=== PATIENT | female | born 1990 | race African-American/Black ===

== ENCOUNTER 2018-10-03 10:58 | Emergency (ER) | payer MEDICAID ==
[~2018-10-03] VITALS: Ht 177.8 cm; Wt 174.2 kg
[2018-10-03 11:04] VITALS: BP 161/93
--- NOTE | 2018-10-03 11:12 | NUR ---
Patient ambulated to bed 11. RN evaluating patient at bedside.
--- NOTE | 2018-10-03 11:31 | NUR ---
Dr. Mejia evaluating patient at bedside.
--- NOTE | 2018-10-03 11:44 | NUR ---
PT BIB SELF C/O VAGINAL BLEEDING SINCE June ALONG WITH UPPER AND LOWER BACK PAIN X 2 WEEKS. PT DENIES BURNING URINATION OR VAGINAL PAIN, REPORTS HAVING TO CHANGE PAD 10X PER HOUR. BACK PAIN X 2 WEEKS, DENIES RECENT INJURIES, PAIN AT 11/05. VSS. ER MD TO SEE PT. HX: HTN
[2018-10-03] MEDS ORDERED: NACL 0.9% 1,000 ML IV ONE (11:50)
[2018-10-03 12:11] LABS: BASOPHILS # (AUTO) 0.1 K/uL (0.00-0.22); BASOPHILS % (AUTO) 1.2 % (0.0-2.0); EOSINOPHILS # (AUTO) 0.1 K/uL (0-0.4); EOSINOPHILS % (AUTO) 1.7 % (0.0-4.0); HEMATOCRIT 34.4 % (36-48); HEMOGLOBIN 11.5 g/dL (12.0-16.0); LYMPHOCYTES # (AUTO) 2.3 K/uL (2.5-16.5); LYMPHOCYTES % (AUTO) 28.9 % (20.5-51.1); MEAN CORPUSCULAR HEMOGLOBIN 28 pg (27-31); MEAN CORPUSCULAR HGB CONC 34 g/dL (33-37); MEAN CORPUSCULAR VOLUME 82.4 fL (80-94); MONOCYTES # (AUTO) 0.6 K/uL (0.8-1.0); MONOCYTES % (AUTO) 7.4 % (1.7-9.3); NEUTROPHILS # (AUTO) 4.9 K/uL (1.8-7.7); NEUTROPHILS % (AUTO) 60.8 % (42.2-75.2); PLATELET COUNT (AUTO) 331 K/uL (140-450); RED BLOOD CELL COUNT(AUTO) 4.18 MIL/uL (4.20-5.40); RED CELL DISTRIBUTION WIDTH 15.7 % (11.6-13.7); WHITE BLOOD COUNT (AUTO) 8.1 K/uL (4.8-10.8)
--- NOTE | 2018-10-03 12:12 | NUR ---
US tech at bedside for exam.
[2018-10-03 12:23] LABS: ANION GAP 11.1 (8-16); CARBON DIOXIDE 28.7 mmol/L (21-32); CREATININE 0.8 mg/dL (0.6-1.3); POTASSIUM 3.8 mmol/L (3.5-5.1)
[2018-10-03 12:28] LABS: PROTHROMBIN TIME 9.5 secs (10.8-13.4)
[2018-10-03 12:29] LABS: ALBUMIN 3.5 g/dL (3.4-5.0); TOTAL BILIRUBIN 0.3 mg/dL (0.0-1.0)
[2018-10-03 12:56] VITALS: BP 134/75
--- NOTE | 2018-10-03 12:58 | NUR ---
Patient discharged with v/s stable. Written and verbal after care instructions given and explained. Patient alert, oriented and verbalized understanding of instructions. Ambulatory with steady gait. All questions addressed prior to discharge. ID band removed. Patient advised to follow up with PMD. Rx of TRAMADOL,PREMARIN given. Patient educated on indication of medication including possible reaction and side effects. Opportunity to ask questions provided and answered.
== END 2018-10-03 12:55 | disposition home or self-care (01) ==
LOC: MED 10:58
DX: N83.201 Unspecified ovarian cyst, right side (principal); N94.6 Dysmenorrhea, unspecified; R07.89 Other chest pain
CPT/HCPCS: 36415; 76856; 80053; 81002; 81025; 85025; 85610; 85730; 99284; J7030; Q0092

== ENCOUNTER 2018-11-20 10:58 | Emergency (ER) | payer MEDICAID ==
[~2018-11-20] VITALS: Ht 175.3 cm; Wt 173.3 kg
[2018-11-20 11:00] VITALS: BP 138/93
--- NOTE | 2018-11-20 11:16 | NUR ---
C/O SUSPECTED SPIDER BITE & PAIN 12/05 AND THROBBING TO L FOREHEAD X5 DAYS. PER PT, SHE WAS SEEN AT [facility] ON SUNDAY AND GIVEN ABX FOR THE BITE. PT STATES AT THAT TIME IT WAS DRAINING BROWN/YELLOW FLUID. REDNESS NOTED TO L SIDE FOREHEAD, NO DRAINAGE NOTED AT THIS TIME, MILD SWELLING NOTED TO L TEMPORAL AREA RADIATING TO EYE/EAR. PT DENIES FEVER/CHILLLS/N/V. BED IN LOW POSITION, SIDE RAIL UP X1
--- NOTE | 2018-11-20 11:18 | NUR ---
ERMD AT BEDSIDE
[2018-11-20] MEDS ORDERED: HYDROcodone/APAP 5/325 MG 1 TAB TAB PO ONE (11:30)
--- NOTE | 2018-11-20 12:00 | NUR ---
PT STATES THE PAIN MEDICATION RELIEVED HER PAIN TO 5/10 AT THIS TIME
[2018-11-20 12:25] VITALS: BP 130/91
--- NOTE | 2018-11-20 12:26 | NUR ---
Patient discharged with v/s stable. Written and verbal after care instructions given and explained. Patient alert, oriented and verbalized understanding of instructions. Ambulatory with steady gait. All questions addressed prior to discharge. ID band removed. Patient advised to follow up with PMD. Rx of NORCO, GABAPENTIN given. Patient educated on indication of medication including possible reaction and side effects. Opportunity to ask questions provided and answered.
== END 2018-11-20 12:26 | disposition home or self-care (01) ==
LOC: MED 10:58
DX: S00.86XA Insect bite (nonvenomous) of other part of head, initial encounter (principal); M79.2 Neuralgia and neuritis, unspecified; W57.XXXA Bitten or stung by nonvenomous insect and other nonvenomous arthropods, initial encounter; Y93.89 Activity, other specified; Y92.89 Other specified places as the place of occurrence of the external cause; Y99.8 Other external cause status
CPT/HCPCS: 99283

== ENCOUNTER 2019-05-08 08:15 | Emergency (ER) | payer MEDICAID ==
[~2019-05-08] VITALS: Ht 177.8 cm; Wt 174.6 kg
[2019-05-08 08:21] VITALS: BP 159/101
--- NOTE | 2019-05-08 08:25 | NUR ---
Patient ambulated to bed 9. RN evaluating patient at bedside.
--- NOTE | 2019-05-08 08:33 | NUR ---
RECEVIED A 29/F FROM TRIAGE WITH C/O LOWER ABDOMINAL PAIN/CRAMPING WITH N/V. LAST EPISODE OF EMESIS APPROX 2 HRS PRIOR TO ARRIVAL. IN BED FOR MSE.
[2019-05-08] MEDS ORDERED: KETOROLAC 60 MG/2 ML VIAL IM ONE (09:00)
[2019-05-08 09:26] VITALS: BP 158/105
--- NOTE | 2019-05-08 09:26 | NUR ---
Patient discharged with v/s stable. Written and verbal after care instructions given and explained. Patient alert, oriented and verbalized understanding of instructions. Ambulatory with steady gait. All questions addressed prior to discharge. ID band removed. Patient advised to follow up with PMD. Rx of Motrin, Cipro, and Imodium given. Patient educated on indication of medication including possible reaction and side effects. Opportunity to ask questions provided and answered.
== END 2019-05-08 09:26 | disposition home or self-care (01) ==
LOC: MED 08:15
DX: R11.2 Nausea with vomiting, unspecified (principal); R19.7 Diarrhea, unspecified; R10.30 Lower abdominal pain, unspecified
CPT/HCPCS: 81002; 81025; 96372; 99283; J1885

== ENCOUNTER 2019-07-29 11:12 | Emergency (ER) | payer MEDICAID ==
[~2019-07-29] VITALS: Ht 177.8 cm; Wt 172.4 kg
[2019-07-29 11:24] VITALS: BP 143/90
--- NOTE | 2019-07-29 11:24 | NUR ---
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 Pt c/o feeling BL eye stye, only L eye stye noted at this time. Pt denies fever/chills, cough/congestion, CP/SOB. Denies vision changes. Pt awake and alert, skin normal color warm and dry, rr even and unlabored. Denies med hx or rx.
--- NOTE | 2019-07-29 11:24 | NUR ---
Pt triaged, negative screen for covid-19. Pt ambulated to bed
[2019-07-29 12:11] VITALS: BP 151/84
--- NOTE | 2019-07-29 12:12 | NUR ---
Patient discharged with v/s stable. Written and verbal after care instructions given and explained. Patient alert, oriented and verbalized understanding of instructions. Ambulatory with steady gait. All questions addressed prior to discharge. ID band removed. Patient advised to follow up with PMD. Rx of erythromycin opth, ketotifen opth given. Patient educated on indication of medication including possible reaction and side effects. Opportunity to ask questions provided and answered.
== END 2019-07-29 12:12 | disposition home or self-care (01) ==
LOC: MED 11:12
DX: H00.014 Hordeolum externum left upper eyelid (principal); R03.0 Elevated blood-pressure reading, without diagnosis of hypertension
CPT/HCPCS: 99283

== ENCOUNTER 2019-07-31 10:12 | Emergency (ER) | payer MEDICAID ==
[~2019-07-31] VITALS: Ht 180.3 cm; Wt 173.7 kg
[2019-07-31 10:17] VITALS: BP 153/90
--- NOTE | 2019-07-31 10:39 | NUR ---
29 y/o female presented to ED recheck from 07/29/19 visit d/t sty in Left eye. Pt woke up this morning and it started burning again, 5/10 pain. Pt states she was due to go back to work today but they wanted her to get rechecked and get a Dr. Note. Pt states she still has blurry vision in left eye, denies KHOURY. Pt states she has been taking the medications prescribed by GARRY on 07/29/19. Pt sitting in chair at bedside. Pt breathing even and unlabored.
--- NOTE | 2019-07-31 10:45 | NUR ---
ERMD AT BEDSIDE FOR MSE.
[2019-07-31 10:57] VITALS: BP 153/90
--- NOTE | 2019-07-31 10:57 | NUR ---
PT IS NOT HOMELESS , HOMELESS ASSESSMENT NOT NEEDED AT THIS TIME.
--- NOTE | 2019-07-31 10:58 | NUR ---
Patient discharged with v/s stable. Written and verbal after care instructions given and explained. Patient verbalized understanding. Ambulatory with steady gait. All questions addressed prior to discharge. Advised to follow up with PMD.
== END 2019-07-31 10:58 | disposition home or self-care (01) ==
LOC: MED 10:12
DX: H44.002 Unspecified purulent endophthalmitis, left eye (principal); Z48.00 Encounter for change or removal of nonsurgical wound dressing
CPT/HCPCS: 99281

== ENCOUNTER 2020-08-31 10:52 | Emergency (ER) | payer MEDICAID ==
[~2020-08-31] VITALS: Ht 180.3 cm; Wt 179.2 kg
[2020-08-31 11:02] VITALS: BP 161/106
--- NOTE | 2020-08-31 11:37 | NUR ---
Patient ambulated to restroom for urine sample.
--- NOTE | 2020-08-31 12:00 | NUR ---
30 y/o F BIB self from home with c/c N/V/D, abdominal pain x 1 week. Patient reports vomiting since this morning; reports 4 episodes of vomiting -blood with diarrhea and abdominal pain. Patient states epigastric pain, 8/10, squeezing/intermittent pain that radiates to suprapubic and low back. Patient also reports fever, runny nose and cough; denies any illness at household. Patient reports Naproxen yesterday morning with temporary relief. Denies chest pain, SOB, headache, dizziness. Last BM: this morning/diarrhea. Pt placed into a gown. Urine sample collected. Bed locked in lowest position, side rails x 1, call light in reach. PMH:NONE MEDS: NONE NKA
[2020-08-31] MEDS ORDERED: DICYCLOMINE 20 MG/2 ML VIAL IM ONE (12:20)
--- NOTE | 2020-08-31 12:20 | NUR ---
Dr. Kidd is evaluating patient at bedside.
--- NOTE | 2020-08-31 12:30 | NUR ---
Patient to CT via W/C.
--- NOTE | 2020-08-31 12:45 | NUR ---
Pt returned from CT.
--- NOTE | 2020-08-31 12:49 | NUR ---
Lab at bedside.
[2020-08-31 13:05] LABS: BASOPHILS % (AUTO) 0.3 % (0.0-2.0); EOSINOPHILS # (AUTO) 0.2 K/uL (0-0.4); EOSINOPHILS % (AUTO) 2.6 % (0.0-4.0); HEMATOCRIT 38.4 % (36-48); HEMOGLOBIN 13.2 g/dL (12.0-16.0); LYMPHOCYTES # (AUTO) 2.9 K/uL (2.5-16.5); LYMPHOCYTES % (AUTO) 37.7 % (20.5-51.1); MEAN CORPUSCULAR HEMOGLOBIN 30 pg (27-31); MEAN CORPUSCULAR HGB CONC 34 g/dL (33-37); MEAN CORPUSCULAR VOLUME 86.4 fL (80-94); MONOCYTES # (AUTO) 0.7 K/uL (0.8-1.0); MONOCYTES % (AUTO) 8.7 % (1.7-9.3); NEUTROPHILS # (AUTO) 3.9 K/uL (1.8-7.7); NEUTROPHILS % (AUTO) 50.7 % (42.2-75.2); PLATELET COUNT (AUTO) 285 K/uL (140-450); RED BLOOD CELL COUNT(AUTO) 4.44 MIL/uL (4.20-5.40); RED CELL DISTRIBUTION WIDTH 14.9 % (11.6-13.7); WHITE BLOOD COUNT (AUTO) 7.7 K/uL (4.8-10.8)
--- NOTE | 2020-08-31 13:05 | NUR ---
Patient asleep on right side; semi-fowlers position. Bed locked in lowest position, side rails x 1, call light in reach. VSS; respirations even/unlabored.
[2020-08-31 13:29] LABS: APPEARANCE,URINE CLEAR (CLEAR); BILIRUBIN,URINE NEGATIVE (NEGATIVE); BLOOD, URINE TRACE-I (NEGATIVE); COLOR,URINE YELLOW (YELLOW); LEUKOCYTE ESTERASE ,URINE NEGATIVE (NEGATIVE); NITRITE, URINE NEGATIVE (NEGATIVE); PH,URINE 6.5 (5.0-9.0); UGLUCOSE NEGATIVE (NEGATIVE)
[2020-08-31 13:51] LABS: ANION GAP 12.3 (8-16); CARBON DIOXIDE 26.3 mmol/L (21-32); CREATININE 0.7 mg/dL (0.6-1.3); POTASSIUM 3.6 mmol/L (3.5-5.1); TOTAL BILIRUBIN 0.2 mg/dL (0.0-1.0)
--- NOTE | 2020-08-31 14:11 | NUR ---
Patient asleep on left side; semi-fowlers position. Bed locked in lowest position, side rails x 1, call light in reach. VSS; respirations even/unlabored.
[2020-08-31 14:27] LABS: RBC,URINE 0-5 /HPF (0-5); WBC,URINE NONE SEEN /HPF (0-5)
[2020-08-31] MEDS ORDERED: BEN10 PO (14:43)
[2020-08-31] MEDS ORDERED: ONDA-24 SL (14:43)
--- NOTE | 2020-08-31 14:45 | NUR ---
Patient states pain 1/10 at this time.
--- NOTE | 2020-08-31 14:50 | NUR ---
Patient discharged with v/s stable. Written and verbal after care instructions given and explained. Patient alert, oriented and verbalized understanding of instructions. Ambulatory with steady gait. All questions addressed prior to discharge. ID band removed. Patient advised to follow up with PMD. Rx of Jasmine Toscano given. Patient educated on indication of medication including possible reaction and side effects. Opportunity to ask questions provided and answered.
[2020-08-31 14:51] VITALS: BP 162/106
== END 2020-08-31 14:50 | disposition home or self-care (01) ==
LOC: MED 10:52
DX: R11.10 Vomiting, unspecified (principal); R19.7 Diarrhea, unspecified; K85.90 Acute pancreatitis without necrosis or infection, unspecified; Z79.899 Other long term (current) drug therapy
CPT/HCPCS: 36415; 74176; 80053; 81001; 81025; 83690; 85025; 96372; 99284; J0500

== ENCOUNTER 2021-06-16 20:42 | Emergency (ER) | payer MEDICAID ==
[~2021-06-16] VITALS: Ht 172.7 cm; Wt 193.2 kg
[~2021-06-16 20:42] MED LIST: BEN10 PO; ONDA-188 SL
[2021-06-16 20:55] VITALS: BP 199/114
--- NOTE | 2021-06-16 21:08 | NUR ---
PT TAKEN TO BED 6
--- NOTE | 2021-06-16 21:10 | NUR ---
Patient bib self from home for c/o R ear pain x 1 day 12/05. Per per patient woke up with swelling of ear, yellow drainage, and difficulty hearing in R ear. Patient states OTC rx ineffective and pain now radiates to R side of neck and R shoulder. Patient also states c/o sore throat. No SOB noted. MEDHX: Denies NKA
--- NOTE | 2021-06-16 21:40 | NUR ---
PT PROVIDED BLANKET. ALL NEEDS MET AT THIS TIME
--- NOTE | 2021-06-16 22:08 | NUR ---
31Y.O F BIB SELF FOR RT EAR PAIN AMD RT SHOULDER PAIN X 1 DAY. PT STATES PAIN 1010. RT EAR BEGAN DRAINING YELLOW DISCHARGE. PT STATES SHE HAS NAUSEA FROM THE PAIN . SHE HAS BEEN TAKING TYLENOL AND MOTRIN FOR PAIN NEEDED. PT HAS HAD A COUGH FOR A COUPLE WEEKS . FOR DENIES F/V/D; SKIN IS PINK/WARM/DRY; AAOX4 WITH EVEN AND STEADY GAIT; HR EVEN AND REGULAR;VSS; PATIENT POSITIONED FOR COMFORT; HOB ELEVATED; BEDRAILS UP X2; BED DOWN. ER MADE AWARE OF PT STATUS. PMH:NONE ALLERGIES:NONE MEDS: NONE
--- NOTE | 2021-06-16 22:23 | NUR ---
Dr. Cifuentes examining patient.
[2021-06-16] MEDS ORDERED: AMOXIL/CLAVULANATE 875/125 MG 1 TAB PO ONE (22:25)
[2021-06-16] MEDS ORDERED: KETOROLAC 60 MG/2 ML VIAL IM ONE (22:25)
--- NOTE | 2021-06-16 22:38 | NUR ---
X-Ray at bedside.
--- NOTE | 2021-06-16 22:51 | NUR ---
HR 117, BP 191/107. DR. GONZALEZ NOTIFIED AND AT BEDSIDE.
[2021-06-16] MEDS ORDERED: MORPHINE SULFATE 4 MG/ML SYR IVP ONE (22:55)
[2021-06-16] MEDS ORDERED: NACL 0.9% 1,000 ML IV ONE (22:55)
[2021-06-16] MEDS ORDERED: KETOROLAC 30 MG/ML VIAL IVP ONE (23:15)
--- NOTE | 2021-06-16 23:15 | NUR ---
PT NOTED FEELING NAUSOUS AFTER MORPHINE. PT HOB ELEVATED. VITALS SIGNS RETAKEN
[2021-06-16] MEDS ORDERED: KETOROLAC 15 MG/ML VIAL ONE (23:16)
[2021-06-16 23:18] LABS: BASOPHILS # (AUTO) 0.1 K/uL (0.00-0.22); BASOPHILS % (AUTO) 1.3 % (0.0-2.0); EOSINOPHILS # (AUTO) 0.2 K/uL (0-0.4); EOSINOPHILS % (AUTO) 1.7 % (0.0-4.0); HEMATOCRIT 41.1 % (36-48); LYMPHOCYTES # (AUTO) 3.1 K/uL (2.5-16.5); LYMPHOCYTES % (AUTO) 31.1 % (20.5-51.1); MEAN CORPUSCULAR HEMOGLOBIN 29 pg (27-31); MEAN CORPUSCULAR HGB CONC 34 g/dL (33-37); MEAN CORPUSCULAR VOLUME 85.8 fL (80-94); MONOCYTES % (AUTO) 10.1 % (1.7-9.3); NEUTROPHILS # (AUTO) 5.6 K/uL (1.8-7.7); NEUTROPHILS % (AUTO) 55.8 % (42.2-75.2); PLATELET COUNT (AUTO) 310 K/uL (140-450); RED BLOOD CELL COUNT(AUTO) 4.79 MIL/uL (4.20-5.40); RED CELL DISTRIBUTION WIDTH 14.5 % (11.6-13.7)
[2021-06-16 23:41] LABS: CARBON DIOXIDE 26.4 mmol/L (21-32); CREATININE 0.8 mg/dL (0.6-1.3); POTASSIUM 4.4 mmol/L (3.5-5.1)
[2021-06-17] MEDS ORDERED: AMOX1TAB8 PO (00:02)
[2021-06-17] MEDS ORDERED: IBUP-2213 PO (00:02)
[2021-06-17] MEDS ORDERED: CIPR10SU RIGHT EAR (00:02)
[2021-06-17] MEDS ORDERED: cefTRIAXone 1,000 MG VIAL ONE (00:09)
[2021-06-17 00:45] VITALS: BP 181/118
--- NOTE | 2021-06-17 00:45 | NUR ---
Patient discharged with v/s stable. Written and verbal after care instructions given and explained. Patient alert, oriented and verbalized understanding of instructions. Ambulatory with steady gait. All questions addressed prior to discharge. ID band removed. Patient advised to follow up with PMD. Rx of amox- clav, cipro otic yi, ibuprofen given. Opportunity to ask questions provided and answered.
--- NOTE | 2021-06-17 00:55 | NUR ---
The patient's care was reviewed and supervised by Teresa Owens RN.
== END 2021-06-17 00:45 | disposition home or self-care (01) ==
LOC: MED 20:42
DX: S43.401A Unspecified sprain of right shoulder joint, initial encounter (principal); H66.91 Otitis media, unspecified, right ear; H60.91 Unspecified otitis externa, right ear; Z79.1 Long term (current) use of non-steroidal anti-inflammatories (NSAID); Z79.2 Long term (current) use of antibiotics; Z79.899 Other long term (current) drug therapy; W18.39XA Other fall on same level, initial encounter; Y92.89 Other specified places as the place of occurrence of the external cause; Y93.89 Activity, other specified; Y99.8 Other external cause status
CPT/HCPCS: 36415; 73030; 80048; 83605; 85025; 87040; 96361; 96365; 96375; 99285; J0696; J1885; J2270; J7030; Q0092

== ENCOUNTER 2021-09-26 14:47 | Emergency (ER) | payer MEDICAID ==
[~2021-09-26] VITALS: Ht 177.8 cm; Wt 186.0 kg
[~2021-09-26 14:47] MED LIST changes: +AMOX1TAB8 PO; +CIPR10SU RIGHT EAR; +IBUP-2213 PO
[2021-09-26 14:49] VITALS: BP 183/109
--- NOTE | 2021-09-26 14:55 | NUR ---
PT AMBULATED TO BED 10 WITH STEADY GAIT
--- NOTE | 2021-09-26 15:02 | NUR ---
31 Y/O FEMALE BIB SELF C/O OF LEFT EAR PAIN, LOSS OF HEARING AND DRAINAGE ALONG WITH PRESURE AND NUMBNESS ON THE LEFT SIDE OF HER BODY X 1DAY. PER PT SHE NOTED PURULENT DRAINAGE FROM THE LEFT EAR AND IS NOW C/O OF DECREASED HEARING ON AFFECTED EAR. NOTED SOME DRIED YELLOWISH COLORED SPOTS ON THE OUTER EAR CANAL. PT DENIES WEAKNESS ON THE LEFT UPPER AND LOWER EXTREMITIES, BILATERAL HAND CARETAKER GROUNDS EQUAL. NKA PMH: ABNORMAL MENSTRUAL CYCLES
--- NOTE | 2021-09-26 15:36 | NUR ---
DR TRIPLETT AT BEDSIDE FOR EVAL
[2021-09-26] MEDS ORDERED: KETOROLAC 30 MG/ML VIAL IM ONE (15:45)
[2021-09-26] MEDS ORDERED: HYDROcodone/APAP 5/325 MG 1 TAB TAB PO ONE (15:45)
--- NOTE | 2021-09-26 15:49 | NUR ---
PT OFFERED A CUP OF WATER
--- NOTE | 2021-09-26 15:54 | NUR ---
PT AMBULATED WITH STEADY GAIT TO BATHROOM
--- NOTE | 2021-09-26 16:09 | NUR ---
Danita ivey in [facility] - 09/26/21 at 1610 by MNURBMD PT TAKEN TO CT VIA WC
--- NOTE | 2021-09-26 16:09 | NUR ---
PT TAKEN TO CT VIA WHEELCHAIR
--- NOTE | 2021-09-26 16:17 | NUR ---
PT RETURN FROM CT
[2021-09-26] MEDS ORDERED: AMOX500C25 PO (17:13)
[2021-09-26] MEDS ORDERED: ACET-8386 PO (17:13)
[2021-09-26 17:23] VITALS: BP 160/88
--- NOTE | 2021-09-26 17:23 | NUR ---
Patient discharged with v/s stable. Written and verbal after care instructions given and explained. Patient alert, oriented and verbalized understanding of instructions. Ambulatory with to car. All questions addressed prior to discharge. ID band removed. Patient advised to follow up with PMD. Rx of NORCO 5-325, AMOXICILLIN given. Patient educated on indication of medication including possible reaction and side effects. Opportunity to ask questions provided and answered.
== END 2021-09-26 17:23 | disposition home or self-care (01) ==
LOC: MED 14:47
DX: J02.9 Acute pharyngitis, unspecified (principal); R51.9 Headache, unspecified; H92.02 Otalgia, left ear
CPT/HCPCS: 70450; 81002; 81025; 96372; 99284; J1885

== ENCOUNTER 2022-04-25 08:09 | Emergency (ER) | payer MEDICAID ==
[~2022-04-25] VITALS: Ht 180.3 cm; Wt 191.9 kg
[~2022-04-25 08:09] MED LIST changes: +ACET-8905 PO; +AMOX500C25 PO
[2022-04-25 08:17] VITALS: BP 156/112
--- NOTE | 2022-04-25 08:21 | NUR ---
AMBULATED OT BED 2
--- NOTE | 2022-04-25 08:32 | NUR ---
DR PINEDA AT BEDSIDE EVALUATING PT
[2022-04-25] MEDS ORDERED: NITR100C7 PO (08:40)
[2022-04-25] MEDS ORDERED: PHEN-1877 PO (08:40)
--- NOTE | 2022-04-25 09:33 | NUR ---
Patient discharged with v/s stable. Written and verbal after care instructions given and explained. Patient alert, oriented and verbalized understanding of instructions. Ambulatory with to car. All questions addressed prior to discharge. ID band removed. Patient advised to follow up with PMD. Rx of MACROBID given. Patient educated on indication of medication including possible reaction and side effects. Opportunity to ask questions provided and answered.
[2022-04-25 10:48] LABS: APPEARANCE,URINE HAZY (CLEAR); BILIRUBIN,URINE NEGATIVE (NEGATIVE); BLOOD, URINE TRACE-I (NEGATIVE); COLOR,URINE YELLOW (YELLOW); LEUKOCYTE ESTERASE ,URINE NEGATIVE (NEGATIVE); NITRITE, URINE NEGATIVE (NEGATIVE); UGLUCOSE NEGATIVE (NEGATIVE)
[2022-04-25 11:16] LABS: RBC,URINE NONE SEEN /HPF (0-5); WBC,URINE 0-5 /HPF (0-5)
== END 2022-04-25 09:33 | disposition home or self-care (01) ==
LOC: MED 08:09
DX: N39.0 Urinary tract infection, site not specified (principal); L29.9 Pruritus, unspecified
CPT/HCPCS: 81001; 81025; 99283

== ENCOUNTER 2022-06-21 10:19 | Emergency (ER) | payer MEDICAID ==
[~2022-06-21] VITALS: Ht 175.3 cm; Wt 183.3 kg
[~2022-06-21 10:19] MED LIST changes: +NITR100C7 PO; +PHEN-1877 PO
[2022-06-21 10:23] VITALS: BP 180/101
--- NOTE | 2022-06-21 10:29 | NUR ---
AMBULATED TO ER BED 7
--- NOTE | 2022-06-21 10:56 | NUR ---
COMFORT MEASURES AND SUPPORTIVE CARE INITIATED. STATES SUDDEN ONSET CHILLS, VOMITING, FEVER, ABDOMINAL PAIN, WEAKNESS. SYMPTOMS ON AND OFF. STATES ONE WEEK AGO HAD BACK PAIN. SEEN BY PMD THEN. NO FINDINGS AT THAT TIME. STATES BACK PAIN RETURNED TODAY W/ THROBBING HEADACHE. PREP FOR GARRY HEAD.
--- NOTE | 2022-06-21 11:09 | NUR ---
URINE GIVEN TO SUSHMA RUSHING FOR DIP AND SEND.
[2022-06-21] MEDS ORDERED: ONDANSETRON 4 MG ODT PO ONE (11:15)
[2022-06-21] MEDS ORDERED: NACL 0.9% 1,000 ML IV SCH (11:15)
[2022-06-21] MEDS ORDERED: ONDANSETRON 4 MG/2 ML VIAL IVP ONE (11:15)
[2022-06-21] MEDS ORDERED: KETOROLAC 60 MG/2 ML VIAL IM ONE (11:15)
[2022-06-21] MEDS ORDERED: KETOROLAC 30 MG/ML VIAL IVP ONE (11:15)
[2022-06-21 11:40] LABS: APPEARANCE,URINE CLEAR (CLEAR); BILIRUBIN,URINE 1+ (NEGATIVE); BLOOD, URINE 1+ (NEGATIVE); COLOR,URINE YELLOW (YELLOW); LEUKOCYTE ESTERASE ,URINE NEGATIVE (NEGATIVE); NITRITE, URINE NEGATIVE (NEGATIVE); UGLUCOSE NEGATIVE (NEGATIVE)
--- NOTE | 2022-06-21 11:44 | NUR ---
PT STATES SHE IS FEELING "OK". TO CT VIA [facility].
[2022-06-21 11:59] LABS: BASOPHILS # (AUTO) 0.1 K/uL (0.00-0.22); BASOPHILS % (AUTO) 1.8 % (0.0-2.0); EOSINOPHILS % (AUTO) 0.4 % (0.0-4.0); HEMATOCRIT 39.7 % (36-48); HEMOGLOBIN 13.7 g/dL (12.0-16.0); LYMPHOCYTES # (AUTO) 2.1 K/uL (2.5-16.5); MEAN CORPUSCULAR HEMOGLOBIN 30 pg (27-31); MEAN CORPUSCULAR HGB CONC 34 g/dL (33-37); MEAN CORPUSCULAR VOLUME 86.5 fL (80-94); MONOCYTES # (AUTO) 0.9 K/uL (0.8-1.0); MONOCYTES % (AUTO) 14.8 % (1.7-9.3); NEUTROPHILS # (AUTO) 3.1 K/uL (1.8-7.7); PLATELET COUNT (AUTO) 269 K/uL (140-450); RED CELL DISTRIBUTION WIDTH 14.1 % (11.6-13.7); WHITE BLOOD COUNT (AUTO) 6.3 K/uL (4.8-10.8)
[2022-06-21 12:04] LABS: WBC,URINE 0-5 /HPF (0-5)
[2022-06-21 12:20] LABS: ALBUMIN 3.5 g/dL (3.4-5.0); ANION GAP 13.7 (8-16); CARBON DIOXIDE 27.2 mmol/L (21-32); CREATININE 0.6 mg/dL (0.6-1.3); POTASSIUM 5.9 mmol/L (3.5-5.1); TOTAL BILIRUBIN 0.7 mg/dL (0.0-1.0)
[2022-06-21] MEDS ORDERED: SODIUM ZIRCONIUM CYCLOSILICATE 10 GM POWD.PACK PO ONE (12:50)
[2022-06-21] MEDS ORDERED: ONDA8TAB87 PO (12:58)
[2022-06-21] MEDS ORDERED: IBUP-2213 PO (12:58)
[2022-06-21] MEDS ORDERED: ACET-8905 PO (12:58)
[2022-06-21 13:32] VITALS: BP 130/70
== END 2022-06-21 13:32 | disposition home or self-care (01) ==
LOC: MED 10:19
DX: E87.5 Hyperkalemia (principal); R11.2 Nausea with vomiting, unspecified; R10.13 Epigastric pain; R19.7 Diarrhea, unspecified; R51.9 Headache, unspecified; I10 Essential (primary) hypertension; Z79.899 Other long term (current) drug therapy; Z79.2 Long term (current) use of antibiotics; Z79.891 Long term (current) use of opiate analgesic
CPT/HCPCS: 36415; 74176; 80053; 81001; 81025; 83690; 85025; 96361; 96374; 96375; 99285; J1885; J2405; J7030

== ENCOUNTER 2022-10-20 16:00 | Emergency (ER) | payer MEDICAID ==
[~2022-10-20] VITALS: Ht 180.3 cm; Wt 151.0 kg
[~2022-10-20 16:00] MED LIST changes: +ONDA8TAB87 PO
[2022-10-20 16:05] VITALS: BP 137/94; PULSE 109; RESP 18; TEMP 97.5; O2SAT 96
[2022-10-20] MEDS ORDERED: OFLO10SO16 OT (16:44)
[2022-10-20] MEDS ORDERED: POLY10DR5 OP (16:44)
[2022-10-20 17:01] VITALS: BP 137/94; PULSE 109; RESP 18; TEMP 97.5; O2SAT 96
== END 2022-10-20 17:01 | disposition home or self-care (01) ==
LOC: MED 16:00
DX: H60.91 Unspecified otitis externa, right ear (principal); H10.9 Unspecified conjunctivitis; B96.89 Other specified bacterial agents as the cause of diseases classified elsewhere; I10 Essential (primary) hypertension; Z79.899 Other long term (current) drug therapy
CPT/HCPCS: 99281

== ENCOUNTER 2023-02-09 13:46 | Emergency (ER) | payer MEDICAID ==
[~2023-02-09] VITALS: Ht 177.8 cm; Wt 182.3 kg
[~2023-02-09 13:46] MED LIST changes: +OFLO10SO16 OT; +POLY10DR5 OP
[2023-02-09 16:15] VITALS: BP 180/114; PULSE 91; RESP 22; TEMP 96.8; O2SAT 99
[2023-02-09] MEDS ORDERED: IMO2 PO (17:03)
[2023-02-09] MEDS ORDERED: BENZ-300 PO (17:03)
[2023-02-09] MEDS ORDERED: PROM118S5 PO (17:03)
[2023-02-09 17:12] LABS: FLU A ANTIGEN negative (NEGATIVE); FLU B ANTIGEN NEGATIVE (NEGATIVE)
[2023-02-09 17:15] VITALS: PULSE 91; RESP 22; TEMP 96.8; O2SAT 99
== END 2023-02-09 17:15 | disposition home or self-care (01) ==
LOC: MED 13:46
DX: B34.9 Viral infection, unspecified (principal); Z20.822 Contact with and (suspected) exposure to COVID-19; I10 Essential (primary) hypertension; Z79.899 Other long term (current) drug therapy
CPT/HCPCS: 99283

== ENCOUNTER 2023-07-27 12:38 | Emergency (ER) | payer MEDICAID ==
[~2023-07-27] VITALS: Ht 177.8 cm; Wt 182.8 kg
[~2023-07-27 12:38] MED LIST changes: +BENZ-300 PO; +IMO2 PO; +PROM118S5 PO
[2023-07-27 12:44] VITALS: BP 204/126; PULSE 103; RESP 20; TEMP 97.2; O2SAT 98
[2023-07-27] MEDS: KETOROLAC 30 MG/ML VIAL IM ONE (13:58)
[2023-07-27] MEDS ORDERED: AMOX1TAB8 PO (14:24)
[2023-07-27] MEDS ORDERED: IBUP-2213 PO (14:24)
[2023-07-27 14:37] VITALS: BP 163/96; PULSE 75; RESP 20; TEMP 98; O2SAT 97
[2023-07-27 15:00] LABS: APPEARANCE,URINE CLEAR (CLEAR); BILIRUBIN,URINE NEGATIVE (NEGATIVE); BLOOD, URINE TRACE-I (NEGATIVE); COLOR,URINE YELLOW (YELLOW); LEUKOCYTE ESTERASE ,URINE NEGATIVE (NEGATIVE); NITRITE, URINE NEGATIVE (NEGATIVE); PH,URINE 6.5 (5.0-9.0); PROTEIN,URINE TRACE (NEGATIVE); UGLUCOSE NEGATIVE (NEGATIVE); UROBILINOGEN,URINE 0.2 EU/dL (0.2 - 1)
[2023-07-27 15:27] LABS: BACTERIA,URINE FEW /HPF (None Seen); RBC,URINE 0-5 /HPF (0-5); SQUAMOUS EPITHELIAL CELL,UR 0-3 (FEW) /LPF (0-3 (FEW)); WBC,URINE 0-5 /HPF (0-5)
== END 2023-07-27 14:38 | disposition home or self-care (01) ==
LOC: MED 12:38
DX: K02.9 Dental caries, unspecified (principal); I88.9 Nonspecific lymphadenitis, unspecified; M54.50 Low back pain, unspecified; M25.571 Pain in right ankle and joints of right foot; Z79.899 Other long term (current) drug therapy
CPT/HCPCS: 73610; 81001; 81025; 96374; 99284; J1885

== ENCOUNTER 2023-12-09 13:45 | Emergency (ER) | payer MEDICAID, OTHER ==
[~2023-12-09] VITALS: Ht 180.3 cm; Wt 158.8 kg
[2023-12-09 14:12] VITALS: BP 184/122; PULSE 103; RESP 20; TEMP 97.6; O2SAT 98
[2023-12-09 15:02] VITALS: TEMP 97.6
[2023-12-09] MEDS: LIDOCAINE 5% 1 EA PATCH TP ONE (15:10)
[2023-12-09] MEDS: KETOROLAC 30 MG/ML VIAL IM ONE (15:15)
[2023-12-09 16:25] VITALS: BP 160/88; PULSE 89; RESP 20; O2SAT 97
[2023-12-09] MEDS ORDERED: LID5T TP (17:22)
[2023-12-09] MEDS ORDERED: IBUP-1842 PO (17:22)
[2023-12-09] MEDS ORDERED: ACET500T99 PO (17:23)
== END 2023-12-09 17:47 | disposition home or self-care (01) ==
LOC: MED 13:45
DX: M54.2 Cervicalgia (principal); M62.830 Muscle spasm of back; I10 Essential (primary) hypertension; Z79.899 Other long term (current) drug therapy
CPT/HCPCS: 70360; 81025; 96372; 99283; J1885